=== PATIENT | female | born 1960 | race Caucasian/White ===

== ENCOUNTER 2016-08-07 09:05 | Outpatient (CLI) | payer OTHER ==
--- NOTE | 2016-08-07 10:10 | DIAGNOSTIC IMAGING REPORT ---
PROCEDURE: CT LOW-DOSE LUNG CA SCREENING CLINICAL INDICATION: HX SMOKER TECHNIQUE: Low-dose helical CT images of the lungs without contrast were obtained and reconstructed at 2.5 mm intervals. MIP reformations in coronal and sagittal planes were created. Radiation dose 1.38 mGy. COMPARISON: Oldest available comparison: Chest x-ray 07/02/2012 FINDINGS: NODULES: None. OTHER LUNG FINDINGS: Mild emphysematous changes. AIRWAY: Branches normally without narrowing or endobronchial nodule. PLEURA: No effusions, thickening, or pneumothorax. AORTA AND GREAT VESSELS: Normal caliber, minor atherosclerotic calcification. PULMONARY ARTERIES: Normal. . HEART AND PERICARDIUM: Normal size without effusion, thickening. LYMPH NODES: No enlarged nodes visible. THORACIC SPINE: No suspicious lesion. Moderate degenerative changes. Chronic mild T10 compression fracture and Schmorl's node. CHEST WALL: Normal. VISUALIZED UPPER ABDOMEN: Normal. 1.6 cm left adrenal mass (-4 Hounsfield units). IMPRESSION: 1. Category 1. Negative. No pulmonary nodules. 2. Mild emphysematous changes 3. 1.6 cm left adrenal adenoma All CT scans at this facility use dose modulation, iterative reconstruction, and/or weight-based dosing when appropriate to reduce radiation dose to as low as reasonably achievable.
== END 2016-08-07 23:00 ==
LOC: CT SRH 09:05
DX: D35.02 Benign neoplasm of left adrenal gland (principal); Z87.891 Personal history of nicotine dependence